=== PATIENT | male | born 1995 | race Caucasian/White ===

== ENCOUNTER 2020-10-21 18:05 | Emergency (ER) | payer BC ==
[~2020-10-21] VITALS: Ht 162.6 cm; Wt 117.9 kg
[~2020-10-21 18:05] MED LIST: BACTROBAN OINT22 GM EXT; IBUPROFEN600 MG PO; KEFLEX CAP 500500 MG PO
[2020-10-21 19:23] LABS: HEMOGLOBIN 14.3 gm/dl (14.0-17.5); RED BLOOD COUNT 4.91 M/UL (4.20-5.50); WHITE BLOOD COUNT 5.2 K/UL (4.5-11.0)
[2020-10-21 19:44] LABS: BUN/CREATININE RATIO 11 (0-10)
[2020-10-21] MEDS ORDERED: ZITHROMAX250 MG PO (20:57)
[2020-10-21] MEDS ORDERED: PROAIR HFA8.5 GM INH (20:57)
[2020-10-21] MEDS ORDERED: ONDANSETRON ODT4 MG SL (20:57)
[2020-10-21] MEDS ORDERED: PHENERGAN 25 MG25 M1 PO (21:14)
== END 2020-10-21 21:20 | disposition home or self-care (01) ==
LOC: ER1 18:05
PROVIDERS: Physician Assistant
DX: U07.1 COVID-19 (principal); J12.82 Pneumonia due to coronavirus disease 2019; R74.01 Elevation of levels of liver transaminase levels; R63.0 Anorexia; Z23 Encounter for immunization
CPT/HCPCS: 71045; 80053; 85025; J2405

== ENCOUNTER 2020-10-22 15:47 | Inpatient (IN) | payer BC, OTHER ==
[~2020-10-22] VITALS: Ht 175.3 cm; Wt 117.9 kg
[~2020-10-22 15:47] MED LIST changes: +ONDANSETRON ODT4 MG SL; +PHENERGAN 25 MG25 M1 PO; +PROAIR HFA8.5 GM INH; +ZITHROMAX250 MG PO
[2020-10-22 17:00] LABS: HEMOGLOBIN 13.6 gm/dl (14.0-17.5); RED BLOOD COUNT 4.62 M/UL (4.20-5.50)
[2020-10-22 17:22] LABS: BUN/CREATININE RATIO 9 (0-10)
[2020-10-23 03:59] LABS: RED BLOOD COUNT 4.35 M/UL (4.20-5.50)
[2020-10-23 04:14] LABS: WHITE BLOOD COUNT 4.8 K/UL (4.5-11.0)
[2020-10-23 04:39] LABS: BUN/CREATININE RATIO 11 (0-10)
[2020-10-23] MEDS ORDERED: PHENERGAN 25 MG25 M1 PO (13:40)
[2020-10-23] MEDS ORDERED: PROAIR HFA8.5 GM INH (13:41)
[2020-10-24 06:50] LABS: RED BLOOD COUNT 4.42 M/UL (4.20-5.50)
[2020-10-24 06:52] LABS: WHITE BLOOD COUNT 7.5 K/UL (4.5-11.0)
[2020-10-24 07:06] LABS: BUN/CREATININE RATIO 17 (0-10)
[2020-10-25 07:46] LABS: HEMOGLOBIN 12.8 gm/dl (14.0-17.5); RED BLOOD COUNT 4.38 M/UL (4.20-5.50); WHITE BLOOD COUNT 7.6 K/UL (4.5-11.0)
[2020-10-25 09:13] LABS: BUN/CREATININE RATIO 20 (0-10)
[2020-10-26 07:11] LABS: HEMOGLOBIN 12.7 gm/dl (14.0-17.5); RED BLOOD COUNT 4.34 M/UL (4.20-5.50); WHITE BLOOD COUNT 7.2 K/UL (4.5-11.0)
[2020-10-26 07:36] LABS: BUN/CREATININE RATIO 19 (0-10)
[2020-10-27 07:05] LABS: HEMOGLOBIN 13.1 gm/dl (14.0-17.5); RED BLOOD COUNT 4.46 M/UL (4.20-5.50); WHITE BLOOD COUNT 8.8 K/UL (4.5-11.0)
[2020-10-27 07:48] LABS: BUN/CREATININE RATIO 23 (0-10)
[2020-10-28 06:22] LABS: HEMOGLOBIN 13.3 gm/dl (14.0-17.5); RED BLOOD COUNT 4.59 M/UL (4.20-5.50); WHITE BLOOD COUNT 9.9 K/UL (4.5-11.0)
[2020-10-28 06:48] LABS: BUN/CREATININE RATIO 20 (0-10)
--- NOTE | 2020-10-28 10:10 | NUR ---
medication- gu[facility] not available on 4th, 5th and 6th floor. have to go to [facility].
[2020-10-29 06:25] LABS: HEMOGLOBIN 13.7 gm/dl (14.0-17.5); RED BLOOD COUNT 4.65 M/UL (4.20-5.50); WHITE BLOOD COUNT 9.8 K/UL (4.5-11.0)
[2020-10-29 06:47] LABS: BUN/CREATININE RATIO 23 (0-10)
[2020-10-30 07:07] LABS: HEMOGLOBIN 13.3 gm/dl (14.0-17.5); RED BLOOD COUNT 4.53 M/UL (4.20-5.50); WHITE BLOOD COUNT 9.7 K/UL (4.5-11.0)
[2020-10-30 07:37] LABS: BUN/CREATININE RATIO 23 (0-10)
--- NOTE | 2020-10-30 14:06 | NUR ---
request to dr. brown patient wanting to take a shower and if ok to remove telemetry and he stated will do it tomorrow not today. relay message to patient and erik zuñiga
--- NOTE | 2020-10-30 14:07 | NUR ---
informed dr. brown of patient stop airvo and using high flow n/c. patient have episodes of pulse ox on low and high 80's. dr. brown acknowleged
[2020-10-31 08:27] LABS: HEMOGLOBIN 13.5 gm/dl (14.0-17.5); RED BLOOD COUNT 4.56 M/UL (4.20-5.50); WHITE BLOOD COUNT 9.4 K/UL (4.5-11.0)
[2020-10-31 08:46] LABS: BUN/CREATININE RATIO 19 (0-10)
--- NOTE | 2020-10-31 09:26 | NUR ---
patient reports of breathing a little better. pulse ox ranges to 90's with high flow nasal cannula. will cont to monitor
--- NOTE | 2020-10-31 12:27 | NUR ---
patient up, watching tv and tolerating high flow nasal cannula.
[2020-11-01 06:38] LABS: HEMOGLOBIN 12.9 gm/dl (14.0-17.5); RED BLOOD COUNT 4.2 M/UL (4.20-5.50); WHITE BLOOD COUNT 7.6 K/UL (4.5-11.0)
[2020-11-01 07:01] LABS: BUN/CREATININE RATIO 15 (0-10)
--- NOTE | 2020-11-01 11:01 | NUR ---
PATIENT ROOM AIR SAT 84%
[2020-11-02 06:08] LABS: HEMOGLOBIN 13.1 gm/dl (14.0-17.5); RED BLOOD COUNT 4.28 M/UL (4.20-5.50); WHITE BLOOD COUNT 7.7 K/UL (4.5-11.0)
--- NOTE | 2020-11-02 06:19 | NUR ---
Pt was weaned to 3 Liters of oxygen, has maintained sats at 95%. Will drop to 80%s when ambulating to bathroom but quickly returns when at rest. Pt has portable oxygen outside of room for home use. States "Can I be discharge home now".
[2020-11-02 06:29] LABS: BUN/CREATININE RATIO 18 (0-10)
[2020-11-02 09:13] LABS: HBSAG SCREEN Negative (Negative); HEP A AB, IGM Negative (Negative); HEP B CORE AB, IGM Negative (Negative); HEP C VIRUS AB <0.1 (0.0-0.9)
[2020-11-02] MEDS ORDERED: IPRAT-ALBUT 0.5-3 ML NEB ×2 (13:22→13:42)
[2020-11-02] MEDS ORDERED: ELIQUIS2.5 MG PO (13:22)
[2020-11-02] MEDS ORDERED: BENZONATATE100 MG PO (13:22)
[2020-11-02] MEDS ORDERED: BUDESONIDE0.5 MG/2 M NEB (13:22)
== END 2020-11-02 14:44 | disposition home or self-care (01) | DRG 177 ==
LOC: ER1 15:47 → M/S 18:13 → CDU 18:13 → M/S 10-23 18:28
PROVIDERS: Internal Medicine; Physician Assistant; Physician Assistant Medical; ADMIT Internal Medicine
PROC: 8E0ZXY6 Isolation (ICD-10-PCS; principal; 2020-10-22)
PROC: XW033E5 Introduction of Remdesivir Anti-infective into Peripheral Vein, Percutaneous Approach, New Technology Group 5 (ICD-10-PCS; 2020-10-22)
PROC: 3E0333Z Introduction of Anti-inflammatory into Peripheral Vein, Percutaneous Approach (ICD-10-PCS; 2020-10-22)
PROC: XW033H5 Introduction of Tocilizumab into Peripheral Vein, Percutaneous Approach, New Technology Group 5 (ICD-10-PCS; 2020-10-22)
PROC: XW033G6 Introduction of REGN-COV2 Monoclonal Antibody into Peripheral Vein, Percutaneous Approach, New Technology Group 6 (ICD-10-PCS; 2020-10-22)
PROC: 5A0955A Assistance with Respiratory Ventilation, Greater than 96 Consecutive Hours, High Flow/Velocity Cannula (ICD-10-PCS; 2020-10-22)
DX: U07.1 COVID-19 (principal); J12.82 Pneumonia due to coronavirus disease 2019; J96.01 Acute respiratory failure with hypoxia; J15.9 Unspecified bacterial pneumonia; N17.9 Acute kidney failure, unspecified; E66.9 Obesity, unspecified; R74.01 Elevation of levels of liver transaminase levels; E88.09 Other disorders of plasma-protein metabolism, not elsewhere classified; F10.10 Alcohol abuse, uncomplicated; Z79.01 Long term (current) use of anticoagulants; Z68.35 Body mass index [BMI] 35.0-35.9, adult
CPT/HCPCS: 36415; 36600; 71045; 76705; 80048; 80053; 80074; 82803; 83036; 83615; 83735; 83880; 85025; 85027; 86140; 87040; 93005; 94640; 94664; 94760; 96374; 96375; 99283; 99285; J0456; J0696; J1100; J1650; J2405; J7030; J7050; M0243; Q9967

== ENCOUNTER → 2020-11-13 | Outpatient (CLI) | payer BC, OTHER ==
[~2020-11-13] MED LIST changes: +BENZONATATE100 MG PO; +BUDESONIDE0.5 MG/2 M NEB; +ELIQUIS2.5 MG PO; +IPRAT-ALBUT 0.5-3 ML NEB
[2020-11-13 13:48] LABS: BUN/CREATININE RATIO 12 (0-10)
== END ==
LOC: LAB 12:46
PROVIDERS: Internal Medicine
DX: R79.89 Other specified abnormal findings of blood chemistry (principal)
CPT/HCPCS: 36415; 80053

== ENCOUNTER → 2020-12-02 | Outpatient (CLI) | payer BC, OTHER | LOC: RAD 15:40 | DX: J18.9 Pneumonia, unspecified organism (principal); U09.9 Post COVID-19 condition, unspecified | CPT/HCPCS: 71046 ==

== ENCOUNTER → 2021-01-06 | Outpatient (CLI) | payer OTHER ==
[2021-01-06 14:53] LABS: HEMOGLOBIN 14.5 gm/dl (14.0-17.5); RED BLOOD COUNT 4.76 M/UL (4.20-5.50); WHITE BLOOD COUNT 6.4 K/UL (4.5-11.0)
[2021-01-06 15:50] LABS: BUN/CREATININE RATIO 8 (0-10)
[2021-01-07 08:13] LABS: HBSAG SCREEN Negative (Negative); HEP A AB, IGM Negative (Negative); HEP B CORE AB, IGM Negative (Negative); HEP C VIRUS AB <0.1 (0.0-0.9)
[2021-01-07 13:13] LABS: MITOCHONDRIAL (M2) ANTIBODY <20.0 Units (0.0-20.0)
== END ==
LOC: LAB 14:27
PROVIDERS: Family Medicine
DX: R79.89 Other specified abnormal findings of blood chemistry (principal); E66.9 Obesity, unspecified
CPT/HCPCS: 36415; 80053; 80061; 80074; 83540; 83550; 85027

== ENCOUNTER → 2021-01-28 | Outpatient (CLI) | payer OTHER ==
[2021-01-28 11:52] LABS: HEMOGLOBIN 14.5 gm/dl (14.0-17.5); RED BLOOD COUNT 4.86 M/UL (4.20-5.50)
[2021-01-28 12:23] LABS: BUN/CREATININE RATIO 15 (0-10)
== END ==
LOC: LAB 11:09
PROVIDERS: Family Medicine
DX: R73.9 Hyperglycemia, unspecified (principal)
CPT/HCPCS: 36415; 80053; 83540; 83550; 85027